=== PATIENT | female | born 1935 | race Caucasian/White ===

== ENCOUNTER 2017-01-21 10:15 | Emergency (ER) | payer OTHER, MEDICARE ==
--- NOTE | 2017-01-21 10:56 | EDPHY ---
H & P Stated Complaint: L leg swelling / pain Time Seen by Provider: 01/21/17 10:53 HPI/ROS: HPI: This is an 82-year-old female who presents with Chief Complaint: Left lower leg pain Location: Left calf Quality: Pain Duration: Started last night approximately lasting 12 hours Signs and Symptoms: No radiation, no weakness, no injury, no chest pain, no shortness of breath, no lower extremity swelling, no orthopnea, no paroxysmal nocturnal dyspnea Timing: Sudden Severity: Moderate Context: Patient has a history of right lower extremity VD superficial thrombophlebitis that was treated with aspirin and compression stockings approximately 2-3 years ago. She went to [employer] to pick[employer] and pack[place] each is approximately 6-7 days ago and rode in the car for 6 hours. Patient and family are concerned about blood clot. Does take hydrochlorothiazide for blood pressure but no prior history of low potassium. Denies iron deficiency anemia. Adamantly denies that the pain was a cramping sensation states that it was sharp and severe. Modifying Factors: Applied compression stockings last night with transient relief and took baby aspirin morning Comment: ROS: Constitutional: No fever, no chills, no weight loss Eyes: No blurred vision Respiratory: No shortness of breath, no cough Cardiovascular: No chest pain Gastrointestinal: No nausea, no vomiting no diarrhea Genitourinary: No dysuria Extremities: No myalgias Neurologic: No weakness, no numbness Skin: No rashes Hematologic: No bruising, no bleeding MEDICAL/SURGICAL HISTORY: Hypertension, hyperlipidemia, osteoporosis. Source: Patient, Family Exam Limitations: No limitations - Personal History Current Tetanus/Diphtheria Vaccine: Unsure Current Tetanus Diphtheria and Acellular Pertussis (TDAP): Unsure - Medical/Surgical History Hx Asthma: No Hx Chronic Respiratory Disease: No Hx Diabetes: No Hx Cardiac Disease: No Hx Renal Disease: No Hx Cirrhosis: No Hx Alcoholism: No Hx HIV/AIDS: No Hx Splenectomy or Spleen Trauma: No Other PMH: DVT, HTN - Social History Smoking Status: Never smoked Alcohol Use: None Drug Use: None - Physical Exam Exam: CONSTITUTIONAL: Extremely well-appearing white elderly female, awake and alert , no obvious distress HEENT: Atraumatic and normocephalic, PERRL, EOMI. Tympanic membranes clear. Hard of hearing. Oropharynx clear, no exudate and moist pink mucosa. Airway patent. No lymphadenopathy. No meningismus. Cardiovascular: Normal S1/S2, regular rate, regular rhythm, without murmur rub or gallop. PULMONARY/CHEST: Symmetrical and nontender. Clear to auscultation bilaterally Good air movement. No accessory muscle usage. ABDOMEN: Soft, nondistended, nontender, no rebound, no guarding, no peritoneal signs, no masses or organomegaly. No CVAT. EXTREMITIES: 2/2 pulses, no deformities, no clubbing, no cyanosis or edema. Left lower extremity shows no skin changes; no erythema; mild calf tenderness; dorsalis pedis and tibial pedis pulses are 2/2. Left knee shows no effusion; no crepitus with extension; no joint line tenderness; no fullness in the posterior aspect; stable to varus valgus exam. No varicose veins. Foot is warm to touch. NEUROLOGICAL: no focal neuro deficits. GCS 15. SKIN: Warm and dry, no erythema. no rash. Good capillary refill. Constitutional: Initial Vital Signs Temperature (C) 36.6 C 01/21/17 10:17 Heart Rate 70 01/21/17 10:17 Respiratory Rate 16 01/21/17 10:17 Blood Pressure 210/119 H 01/21/17 10:17 O2 Sat (%) 93 01/21/17 10:17 O2 Delivery Mode Room Air Allergies/Adverse Reactions: ciprofloxacin [From Cipro] Allergy (Verified 08/24/14 17:47) ciprofloxacin HCl [From Cipro] Allergy (Verified 08/24/14 17:47) Home Medications: Medication Instructions Recorded Micardis Hct 40-12.5 mg Tablet 08/24/14 Medical Decision Making - Diagnostics Imaging Results: Imaging Impressions Extremity Venous Study 01/21/17 10:45 Impression: No deep venous thrombosis left leg. Results called to Dr. Bridger Lim at 11:40 AM. ED Course/Re-evaluation: Left lower extremity ultrasound ordered. No signs of neurovascular compromise/cellulitis/ischemia/claudication 1145: Called by Radiology and ultrasound shows no deep venous thrombosis Suspect muscular strain versus cramping. Patient family have politely declined obtaining labs to evaluate for low potassium as feeling better and wished to proceed with NSAIDs, stretching, and conservative management 1st. Differential Diagnosis: Differential diagnosis includes but is not limited to DVT, muscle cramps, electrolyte disturbance, muscle strain, ischemia, claudication, restless leg syndrome. Departure - Departure Disposition: Home, Routine, Self-Care Clinical Impression: Muscle strain, lower leg Qualifiers: Encounter type: initial encounter Laterality: left Qualified Code(s): S86.912A - Strain of unspecified muscle(s) and tendon(s) at lower leg level, left leg, initial encounter Condition: Good Instructions: Muscle Strain (ED), Leg Cramps (ED) Additional Instructions: Your ultrasound today does not show that she have a deep venous thrombosis. Please take ibuprofen 600-800 mg with food every 6-8 hours as needed for muscle pain. Continue to wear compression stockings as needed for lower extremity swelling. Perform gentle stretching exercises in her lower legs and calves to relieve cramping symptoms. If symptoms continue to persist follow up with primary care provider for further evaluation. Referrals: Emy Garcia MD [Primary Care Provider] - 2-3 days, if not improved
[2017-01-21 11:32] VITALS: PULSE 61; RESP 18; O2SAT 94
[2017-01-21 11:45] VITALS: BP 157/83
[2017-01-21 12:19] VITALS: TEMP 98.2
== END 2017-01-21 12:27 | disposition home or self-care (01) ==
DX: S86.912A Strain of unspecified muscle(s) and tendon(s) at lower leg level, left leg, initial encounter (principal); I10 Essential (primary) hypertension; X58.XXXA Exposure to other specified factors, initial encounter

== ENCOUNTER → 2017-02-27 | Outpatient (CLI) | payer OTHER, MEDICARE | LOC: CIMAGING 10:45 | PROVIDERS: ATTEND Family Medicine | DX: M50.30 Other cervical disc degeneration, unspecified cervical region (principal); M19.042 Primary osteoarthritis, left hand; I10 Essential (primary) hypertension; M85.80 Other specified disorders of bone density and structure, unspecified site; M99.01 Segmental and somatic dysfunction of cervical region | CPT/HCPCS: 72052-PO; 73120-PO ==

== ENCOUNTER → 2018-05-28 | Outpatient (CLI) | payer OTHER, MEDICARE | LOC: CIMAGING 16:28 | PROVIDERS: ATTEND Family Medicine | DX: M16.11 Unilateral primary osteoarthritis, right hip (principal) | CPT/HCPCS: 73502-PO ==